=== PATIENT | male | born 1990 | race Hispanic/Latino ===

== ENCOUNTER 2024-07-07 20:36 | Observation (INO) | payer SELFPAY ==
[2024-07-07 22:08] LABS: Bacteria/HPF None Seen HPF (None Seen); Bilirubin Negative (Negative); Blood, Urine Negative (Negative); CAUTI Indications for Culture Dysuria,urgency,freq; Clarity Clear (Clear); Glucose, Urine (Dipstick) Normal (Negative); Ketone, Urine Negative (Negative); Leukocyte Negative Leu/uL (Negative); Nitrite Negative (Negative); Protein, Urine (Dipstick) Negative (Neg-Trace); RBC/HPF 0-3 HPF (0-3); Specific Gravity, Urine 1.025 (1.002-1.036); Squamous Epithelial 0-3 HPF (0-3); Urobilinogen Normal mg/dL (Less than 2)
[2024-07-07 22:16] LABS: Urine Culture Reflex No No
[2024-07-07 22:17] LABS: #Basophils 0.05 10x3/uL (0.0-0.2); %Basophils 0.4 % (0.0-1.0); %Eosinophils 0.6 % (0.0-10.0); %Monocytes 5.3 % (0.0-10.0); %Neutrophils 83.3 % (42.0-75.0); Mean Corpuscular HGB CONC 34.6 g/dL (32.0-36.0); Mean Corpuscular Hemoglobin 31.2 pg (27.0-31.0); Mean Corpuscular Volume 90.1 fL (78.0-98.0); Mean Platelet Volume 9.7 fL (7.4-10.4); Platelet Count 268 10x3/uL (130-400); RBC Distribution Width 12.3 % (11.5-14.5); Red Blood Cell (RBC) Count 5.77 mill/uL (4.70-6.10)
[2024-07-07 22:17] LABS: Amphetamine Not Detected (NotDetected); Barbiturates Screen Not Detected (NotDetected); Benzodiazepine Screen Not Detected (NotDetected); Cocaine Metabolite Screen Not Detected (NotDetected); Methadone Not Detected (NotDetected); Methamphetamine Not Detected (NotDetected); Opiate Screen Not Detected (NotDetected); Oxycodone Screen Not Detected (NotDetected); Phencyclidine (PCP) Not Detected (NotDetected); THC/Cannabinoid Screen Detected (NotDetected); Tricyclic Screen Not Detected (NotDetected)
[2024-07-07 22:35] LABS: ALT (SGPT) 61 U/L (8-55); AST (SGOT) 27 U/L (5-34); Acetaminophen Less than 10 mcg/mL (Less than 10); Albumin 4.4 g/dL (3.5-5.0); Alcohol Less than 10.0 mg/dL (Less than 10); Alkaline Phosphatase 57 U/L (40-110); Anion Gap 14 mmol/L (10-20); BUN (Urea Nitrogen) 17 mg/dL (8.9-20.6); Bilirubin, Total 0.7 mg/dL (0.2-1.2); CK (CPK) 257 U/L (30-200); Calc. Creatinine Clearance 0 mL/min (70-130); Calcium 8.9 mg/dL (7.8-10.44); Carbon Dioxide 21 mmol/L (22-29); Chloride 103 mmol/L (98-107); Estimated GFR 75; Globulin 3.5 g/dL (2.4-3.5); Glucose 137 mg/dL (70-105); Lipase 26 U/L (8-78); Potassium 3.8 mmol/L (3.5-5.1); Protein, Total 7.9 g/dL (6.0-8.3); Salicylate Less than 8.0 mg/dL (Less than 8.0); Sodium 134 mmol/L (136-145)
[2024-07-07] MEDS ORDERED: Ondansetron PF 4 MG/2 ML Vial IVP PRN (23:34)
[2024-07-07] MEDS ORDERED: traMADol HCl 50 MG TAB PO PRN (23:34)
[2024-07-07] MEDS ORDERED: Labetalol HCl 100 MG/20 ML VIAL SLOW IVP PRN (23:34)
[2024-07-07] MEDS ORDERED: Ondansetron ODT 4 MG TAB PO PRN (23:34)
[2024-07-07] MEDS ORDERED: hydrALAZINE 20 MG/ML VIAL SLOW IVP PRN (23:34)
[2024-07-07] MEDS ORDERED: Ketorolac Tromethamine 30 MG (1 mL) VIAL IVP PRN (23:34)
[2024-07-08] MEDS ORDERED: Ipratropium/Albuterol 3 ML NEB NEB PRN (00:26)
[2024-07-08 03:41] VITALS: BMI 34.7
[2024-07-08] MEDS: Doxycycline 100 MG in Sodium Chloride 0.9% 100 ML IVPB SCH (03:42)
[2024-07-08 03:57] LABS: #Basophils 0.06 10x3/uL (0.0-0.2); %Basophils 0.5 % (0.0-1.0); %Lymphocytes 15.4 % (21.0-51.0); %Monocytes 7.1 % (0.0-10.0); %Neutrophils 75.7 % (42.0-75.0); Hematocrit 44.7 % (42.0-52.0); Hemoglobin 15.7 g/dL (14.0-18.0); Mean Corpuscular HGB CONC 35.1 g/dL (32.0-36.0); Mean Corpuscular Hemoglobin 31.6 pg (27.0-31.0); Mean Corpuscular Volume 89.9 fL (78.0-98.0); Mean Platelet Volume 10.2 fL (7.4-10.4); Platelet Count 245 10x3/uL (130-400); RBC Distribution Width 12.4 % (11.5-14.5); Red Blood Cell (RBC) Count 4.97 mill/uL (4.70-6.10)
[2024-07-08 04:20] LABS: ALT (SGPT) 49 U/L (8-55); AST (SGOT) 18 U/L (5-34); Albumin 3.6 g/dL (3.5-5.0); Alkaline Phosphatase 50 U/L (40-110); Anion Gap 11 mmol/L (10-20); BUN (Urea Nitrogen) 17 mg/dL (8.9-20.6); Bilirubin, Total 0.9 mg/dL (0.2-1.2); CRP,High Sensitivity (Inhouse) 0.23 mg/dL (< or = 0.5); Calc. Creatinine Clearance 151 mL/min (70-130); Calcium 8.2 mg/dL (7.8-10.44); Carbon Dioxide 22 mmol/L (22-29); Cardiac Risk 5.1 (Less than 4.5); Chloride 105 mmol/L (98-107); Cholesterol 174 mg/dl (< 200 Desired); Estimated GFR 101; Globulin 2.8 g/dL (2.4-3.5); Glucose 134 mg/dL (70-105); HDL Cholesterol 34 mg/dL (>60 Neg Risk); LDL Cholesterol, Calculated 121 mg/dL; Potassium 3.7 mmol/L (3.5-5.1); Protein, Total 6.4 g/dL (6.0-8.3); Sodium 134 mmol/L (136-145); Triglycerides 95 mg/dL (Less than 150)
[2024-07-08 06:09] LABS: Influenza A by NAA Not Detected (NotDetected); Influenza B by NAA Not Detected (NotDetected); RSV by NAA Not Detected (NotDetected); SARS-CoV-2 NAA Rapid Test Not Detected (NotDetected)
[2024-07-08] MEDS: Aspirin 81 mg Enteric Coated Tablet PO SCH (08:26)
[2024-07-08] MEDS: Famotidine 20 MG TAB PO SCH (08:26)
[2024-07-08] MEDS: Enoxaparin 40 MG (0.4 mL) SYRINGE SC SCH (08:27)
[2024-07-08] MEDS ORDERED: Magnevist 469MG/ML 20 ML VIAL ONE (08:47)
[2024-07-08] MEDS ORDERED: Enoxaparin 40 MG (0.4 mL) SYRINGE SC SCH (09:00)
[2024-07-08 09:07] LABS: Hemoglobin A1c 5.3 % (4.0-6.0)
[2024-07-08] MEDS: Famotidine/PF 20 mg/2ml Vial SLOW IVP SCH (09:11)
[2024-07-08 09:50] LABS: Troponin I Less than 0.010 ng/mL (< 0.028)
[2024-07-08 13:00] LABS: Troponin I Less than 0.010 ng/mL (< 0.028)
[2024-07-08] MEDS: Acetaminophen 325 MG TAB PO PRN (20:40)
[2024-07-08] MEDS: Atorvastatin Calcium 40 MG TAB PO SCH (20:41)
[2024-07-09 03:53] LABS: #Basophils 0.08 10x3/uL (0.0-0.2); %Basophils 1.1 % (0.0-1.0); %Eosinophils 5.1 % (0.0-10.0); %Lymphocytes 33.1 % (21.0-51.0); %Monocytes 8.4 % (0.0-10.0); Hematocrit 47.9 % (42.0-52.0); Hemoglobin 16.4 g/dL (14.0-18.0); Mean Corpuscular HGB CONC 34.2 g/dL (32.0-36.0); Mean Corpuscular Hemoglobin 31.7 pg (27.0-31.0); Mean Corpuscular Volume 92.6 fL (78.0-98.0); Mean Platelet Volume 10.3 fL (7.4-10.4); Platelet Count 244 10x3/uL (130-400); RBC Distribution Width 12.6 % (11.5-14.5); Red Blood Cell (RBC) Count 5.17 mill/uL (4.70-6.10)
[2024-07-09 04:19] LABS: Anion Gap 11 mmol/L (10-20); BUN (Urea Nitrogen) 13 mg/dL (8.9-20.6); Calc. Creatinine Clearance 171 mL/min (70-130); Calcium 8.6 mg/dL (7.8-10.44); Carbon Dioxide 24 mmol/L (22-29); Chloride 105 mmol/L (98-107); Estimated GFR 115; Glucose 84 mg/dL (70-105); Magnesium 1.9 mg/dL (1.6-2.6); Potassium 4.2 mmol/L (3.5-5.1); Sodium 136 mmol/L (136-145)
[2024-07-09 04:31] LABS: HIV (1/2) Antibody/Antigen NONREACTIVE (NonReactive); HIV 1/2 INDEX 0.05 S/CO (<1.00)
[2024-07-09 11:09] LABS: Syphilis Antibody Nonreactive (Nonreactive); Syphilis Antibody Index 0.05 S/CO (<1.00 Non-Reactive)
[2024-07-09 13:59] LABS: ANA Symphony (Qualitative) Negative (Negative); ANA Symphony (Quantitative) Less than 0.1 Ratio (< 0.7 Negative); dsDNA IgG Antibody 1.5 IU/mL (<10 Negative)
[2024-07-09 14:35] VITALS: BP 127/77; TEMP 98
== END 2024-07-09 14:47 | disposition home or self-care (01) ==
LOC: ERS 20:36 → 2SE 23:42
PROVIDERS: ADMIT Internal Medicine; ATTEND Family Medicine
PROC: B24BZZZ Ultrasonography of Heart with Aorta (ICD-10-PCS; principal; 2024-07-09)
DX: R55 Syncope and collapse (principal); R27.0 Ataxia, unspecified; G93.41 Metabolic encephalopathy; F12.20 Cannabis dependence, uncomplicated
CPT/HCPCS: 0241U; 36415; 70450; 70546; 70551; 71045; 80048; 80053; 80061; 80306; 80307; 81001; 82550; 83036; 83690; 83735; 83880; 84145; 84443; 84484; 85025; 85379; 86038; 86141; 86225; 86780; 87040; 87389; 87428; 93005; 93306; 96360; 96372; 96374; 96375; G0378; J1650; J3490